=== PATIENT | female | born 1950 | race Caucasian/White ===

== ENCOUNTER → 2018-03-24 10:33 | Outpatient (CLI) | payer OTHER, SELFPAY ==
--- NOTE | 2018-03-24 | DI.RAD.S_ITS ---
PROCEDURE: XR KUB INDICATIONS: KIDNEY STONES TECHNIQUE: One view of the abdomen acquired. COMPARISON: [facility], CT, IVP (ABD & PEL WWO CONTRAST), 12/17/2017, 10:19. [facility], CR, XR ABDOMEN 1 VIEW, 01/23/2018, 9:41. [facility], CR, XR KUB, 01/27/2018, 8:03. [facility], CR, KUB XRAY (1 VIEW ABDOMEN), 01/10/2018, 15:28. FINDINGS: Surgical changes and devices: None. Bowel: Bowel gas pattern is normal. Soft tissues: No suspicious abdominal calcifications except for a 3 mm ovoid radiodensity at the expected position of the central renal collecting system on the left. Overlying the expected position of the uterus, previously documented by CT scanning to contain asymmetric right greater than left dystrophic calcifications, again noted are the same calcifications previously present, not representing distal ureteral or bladder calculi. Visualized solid organ contours appear normal in size. Bones: No suspicious bony lesions. IMPRESSION: Only a 3 mm residual calculus is seen at the central renal collecting system. The left kidney. Dystrophic calcification previously documented within the uterus, previously seen by CT scan, are again noted over the right paramedian and left pelvis. Dictated by: Yevgeniy Winslow M.D. on 03/24/2018 at 11:07 Approved by: Yevgeniy Winslow M.D. on 03/24/2018 at 11:12
== END ==
PROVIDERS: Family Provider Family Medicine; PCP Family Medicine; Visit Provider Specialist
DX: N20.0 Calculus of kidney (principal); N85.8 Other specified noninflammatory disorders of uterus
CPT/HCPCS: 74018

== ENCOUNTER → 2018-04-26 10:13 | Outpatient (CLI) | payer OTHER, SELFPAY ==
--- NOTE | 2018-04-26 | DI.RAD.S_ITS ---
PROCEDURE: XR KUB INDICATIONS: KIDNEY STONES TECHNIQUE: One view of the abdomen acquired. COMPARISON: [facility], CR, XR ABDOMEN 1 VIEW, 02/06/2018, 9:49. [facility], CR, XR KUB, 01/27/2018, 8:03. [facility], CR, XR KUB, 03/24/2018, 10:33. FINDINGS: Surgical changes and devices: None. Bowel: Bowel gas pattern is normal. Soft tissues: The 3 mm calcific density in the left renal pelvic area is no longer visualized.Visualized solid organ contours appear normal in size. Bones: No suspicious bony lesions. IMPRESSION: The 3 mm calcific density in the left kidney seen on the last exam is no longer visualized. Dictated by: Migel Alejandre M.D. on 04/26/2018 at 13:54 Approved by: Migel Alejandre M.D. on 04/26/2018 at 13:57
[2018-04-26 11:30] LABS: Calcium 9.6 mg/dL (8.4-10.2); Uric Acid 4.8 mg/dL (2.5-6.2)
[2018-04-29 14:57] LABS: Parathyroid Hormone Int 21 pg/mL (14-64)
== END ==
PROVIDERS: PCP Family Medicine; Visit Provider Specialist
DX: N20.0 Calculus of kidney (principal)
CPT/HCPCS: 36415; 74018; 82310; 83970; 84550

== ENCOUNTER → 2018-11-24 08:53 | Outpatient (CLI) | payer OTHER, SELFPAY ==
--- NOTE | 2018-11-24 | DI.RAD.S_ITS ---
PROCEDURE: XR KUB INDICATIONS: KIDNEY STONES TECHNIQUE: One view of the abdomen acquired. COMPARISON: [facility], CT, IVP (ABD & PEL WWO CONTRAST), 12/17/2017, 10:19. [facility], CR, XR ABDOMEN 1 VIEW, 02/06/2018, 9:49. [facility], CR, XR KUB, 04/26/2018, 10:02. [facility], CR, XR KUB, 03/24/2018, 10:33. FINDINGS: Surgical changes and devices: None. Bowel: Bowel gas pattern is normal. Soft tissues: No new suspicious abdominal calcifications. Visualized solid organ contours appear normal in size. Previously documented urine calcifications are again seen, better localized by CT scanning noted above. Bones: No suspicious bony lesions. IMPRESSION: No definite urinary tract calcifications are seen. Bilateral right greater than left uterine calcifications are again noted at the pelvis, also documented by CT scanning performed 12/17/17. Dictated by: Yevgeniy Winslow M.D. on 11/24/2018 at 9:44 Approved by: Yevgeniy Winslow M.D. on 11/24/2018 at 9:49
== END ==
PROVIDERS: PCP Family Medicine; Visit Provider Specialist
DX: N20.0 Calculus of kidney (principal)
CPT/HCPCS: 74018

== ENCOUNTER → 2019-02-25 15:12 | Outpatient (ROUT) | payer OTHER, SELFPAY | PROVIDERS: PCP Family Medicine; Visit Provider Family Medicine | DX: R10.2 Pelvic and perineal pain (principal); N39.0 Urinary tract infection, site not specified | CPT/HCPCS: 87086 ==

== ENCOUNTER → 2019-02-27 08:08 | Outpatient (CLI) | payer OTHER, SELFPAY ==
--- NOTE | 2019-02-27 | DI.US.S_ITS ---
PROCEDURE: US PELVIC COMPLETE INDICATIONS: UTERINE FIBROIDS TECHNIQUE: Real-time scanning was performed of the pelvic organs, with image documentation. Additional endovaginal scanning was necessary due to incomplete visualization of the adnexal and endometrial structures by transabdominal scanning. COMPARISON: [facility], CT, IVP (ABD & PEL WWO CONTRAST), 12/17/2017, 10:19. FINDINGS: Transabdominal scanning: Limited scanning through the kidneys shows no hydronephrosis. No pathologic free abdominal or pelvic fluid. Endovaginal scanning: Uterus: Uterus is normal in size at 8.8 x 4.2 x 5.9 cm. The endometrium measures 14 mm in combined thickness. The endometrial stripe is complex appearing and demonstrates increased vascularity. The uterus is diffusely heterogeneous, with numerous fibroids. The largest 3 measure as follows: Right uterus, subserosal/intramural, 2.4 x 2 x 2.1 cm Mid uterus posteriorly, submucosal, 2.6 x 2.4 x 2.4 cm Left mid uterus anteriorly, intramural, 1.9 x 2.2 x 2.4 cm Ovaries: The right ovary measures 3.7 x 2.3 x 2.5 centimeters. Adjacent to the right ovary, there is a 2.7 x 2.2 x 2.2 centimeter structure seen which may be related to adnexal mass or ovarian mass. The left ovary measures 2.4 x 1.6 x 1.4 cm. A small amount of free fluid can be seen within the left adnexal region. IMPRESSION: The endometrial stripe is abnormally thickened for a postmenopausal woman. Differential diagnosis includes endometrial neoplasm and endometrial hyperplasia. Recommend correlation with endometrial histology, as clinically appropriate. Several uterine fibroids are seen. There is a right adnexal mass is seen, which may related to an additional uterine fibroid or a right ovarian lesion. As clinically appropriate, please consider a dedicated gynecological protocol MRI (without and with contrast) for further evaluation (assuming that there is no contraindication). A small amount of free fluid can be seen within the left adnexal region. Dictated by: Markus Knox M.D. on 02/27/2019 at 8:47 Approved by: Markus Knox M.D. on 02/27/2019 at 8:52
== END ==
PROVIDERS: PCP Family Medicine; Visit Provider Family Medicine
DX: D25.1 Intramural leiomyoma of uterus (principal); D25.2 Subserosal leiomyoma of uterus; D25.0 Submucous leiomyoma of uterus; R93.89 Abnormal findings on diagnostic imaging of other specified body structures; R19.00 Intra-abdominal and pelvic swelling, mass and lump, unspecified site
CPT/HCPCS: 76830; 76856

== ENCOUNTER → 2020-07-27 08:52 | Outpatient (CLI) | payer OTHER, SELFPAY ==
--- NOTE | 2020-07-27 | DI.US.S_ITS ---
PROCEDURE: US PELVIC COMPLETE INDICATIONS: Endometrial thickening TECHNIQUE: Real-time scanning was performed of the pelvic organs, with image documentation. Additional endovaginal scanning was necessary due to incomplete visualization of the adnexal and endometrial structures by transabdominal scanning. COMPARISON: [facility], CT, IVP (ABD & PEL WWO CONTRAST), 12/17/2017, 10:19. [facility], US, US PELVIC COMPLETE, 02/27/2019, 8:23. FINDINGS: Transabdominal scanning: Limited scanning through the kidneys shows no hydronephrosis. Thinning of the right renal cortex can be seen. Mild free pelvic fluid can be seen. Endovaginal scanning: Uterus: Uterus is normal in size at 10 x 5.9 x 6.9 cm. The endometrium is abnormally thickened at 14.6 mm. Multiple cystic foci can be seen within the endometrial stripe. Hypoechoic uterine lesions are seen, which are attributed to fibroids. They measure as follows: Right posterior uterus, subserosal/intramural uterus, 2.5 x 2 x 3 x 2.2 cm Mid posterior uterus, submucosal, 2.8 x 2 x 3 x 1.9 cm Left anterior uterus, intramural, 2.7 x 1.7 x 1.5 cm Ovaries: The right ovary measures 3.7 x 2.5 x 3.5 cm and demonstrates a hypoechoic solid-appearing lesion that measures 2.6 x 2 x 2.3 cm. The left ovary measures 2.3 x 1.6 x 1.7 cm and demonstrates an unremarkable sonographic appearance. Normal appearing arterial waveforms are confirmed to each ovary. No adnexal masses can be seen on either side. IMPRESSION: The endometrial stripe is again abnormally thickened in a postmenopausal woman. Differential diagnosis includes endometrial hyperplasia and neoplasm. Please correlate with endometrial histology, if clinically appropriate. There is seen a solid appearing right ovarian mass. Uterine fibroids are again seen. Mild free pelvic fluid can be seen. Dictated by: Markus Knox M.D. on 07/27/2020 at 8:56 Approved by: Markus Knox M.D. on 07/27/2020 at 9:01
== END ==
PROVIDERS: PCP Family Medicine; Referring Provider Family Medicine; Visit Provider Family Medicine
DX: R93.89 Abnormal findings on diagnostic imaging of other specified body structures (principal); N83.9 Noninflammatory disorder of ovary, fallopian tube and broad ligament, unspecified; D25.0 Submucous leiomyoma of uterus; D25.1 Intramural leiomyoma of uterus; D25.2 Subserosal leiomyoma of uterus
CPT/HCPCS: 76830; 76856

== ENCOUNTER → 2020-08-01 12:05 | Outpatient (CLI) | payer OTHER, SELFPAY ==
--- NOTE | 2020-08-01 | DI.RAD.S_ITS ---
PROCEDURE: XR KNEE RT 3V INDICATIONS: RIGHT KNEE PAIN TECHNIQUE: 3 views of the knee were acquired. COMPARISON: [facility], CR, XR KNEE LT 3V, 08/01/2020, 12:13. FINDINGS: Bones: No acute fracture or dislocation. There is mild femorotibial compartment narrowing, small intercondylar and tricompartmental osteophytes. Soft tissues: There is a small joint effusion. No suspicious soft tissue calcifications. IMPRESSION: Small joint effusion and mild knee osteoarthritis. If there is continued pain, followup exam or additional imaging such as MRI or CT could be performed for further assessment. Dictated by: Paloma Rangel M.D. on 08/01/2020 at 15:16 Approved by: Paloma Rangel M.D. on 08/01/2020 at 15:17
--- NOTE | 2020-08-01 | DI.RAD.S_ITS ---
PROCEDURE: XR KNEE LT 3V INDICATIONS: BILATERAL KNEE PAIN TECHNIQUE: 3 views of the knee were acquired. COMPARISON: None. FINDINGS: Bones: No acute fracture or dislocation. There is mild femorotibial compartment narrowing and small intercondylar and tricompartmental osteophytes. Soft tissues: There is a moderate joint effusion. No suspicious soft tissue calcifications. IMPRESSION: Moderate knee joint effusion and mild knee osteoarthritis. If there is continued pain, followup exam or additional imaging such as MRI or CT could be performed for further assessment. Dictated by: Paloma Rangel M.D. on 08/01/2020 at 15:15 Approved by: Paloma Rangel M.D. on 08/01/2020 at 15:16
== END ==
PROVIDERS: PCP Family Medicine; Referring Provider Family Medicine; Visit Provider Family Medicine
DX: M25.561 Pain in right knee (principal); M25.562 Pain in left knee; M17.0 Bilateral primary osteoarthritis of knee; M25.461 Effusion, right knee; M25.462 Effusion, left knee
CPT/HCPCS: 73562

== ENCOUNTER → 2022-01-12 10:51 | Outpatient (CLI) | payer OTHER, SELFPAY ==
--- NOTE | 2022-01-12 | DI.US.S_ITS ---
PROCEDURE: US PELVIC COMPLETE INDICATIONS: Postmenopausal bleeding TECHNIQUE: Real-time scanning was performed of the pelvic organs, with image documentation. Additional endovaginal scanning was necessary due to incomplete visualization of the adnexal and endometrial structures by transabdominal scanning. COMPARISON: [facility], US, US PELVIC COMPLETE, 07/27/2020, 9:13. FINDINGS: Uterus: Uterus is anteverted and measures 9.2 x 5.4 x 6.8. The myometrium is heterogeneous. The endometrium measures 17.3 mm combined thickness and demonstrates hypoechoic areas. Multiple rounded, partially calcified lesions are seen within the uterus, compatible with myomatous change. The largest lesion measures 2.2 x 2.1 x 1.6 cm and is located within the right, posterior uterus, compatible with an intramural fibroid. The 2nd largest lesion measures up to 1.9 cm in the right aspect of the uterus, which is incompletely the visualized due to calcifications. Hypoechoic areas are seen in the cervix, compatible with nabothian cysts. Ovaries: The right ovary is not well seen. A 4.9 x 3.5 x 3.7 cm lesion is seen in the right adnexa, which may reflect an enlarged ovary or endometrioma. The left ovary measures 2.5 x 1.4 x 2 cm Other: No pathologic free abdominal or pelvic fluid. IMPRESSION: 1. Thickening of the endometrium as detailed above, concerning for hyperplasia. A neoplastic process cannot be excluded. 2. Redemonstrated myomatous change of the uterus. 3. Lesion in the right adnexa as detailed above, which is incompletely characterized. Consider MR imaging for further evaluation. We strive to produce accurate, complete, and clear reports of imaging services. To assist us in improving patient care, this report was composed using standard report templates and voice recognition software. Therefore, it may contain abnormal punctuation, insertions and/or omissions. Occasional wrong-word or sound-alike substitutions may occur. Though we review the report and make efforts to correct it, we do recommend that the report be read carefully in proper context to recognize any text inaccuracies. Dictated by: Esau Vasquez M.D. on 01/12/2022 at 11:41 Approved by: Esau Vasquez M.D. on 01/12/2022 at 11:48
== END ==
PROVIDERS: PCP Family Medicine; Referring Provider Family Medicine; Visit Provider Family Medicine
DX: N95.0 Postmenopausal bleeding (principal); R93.89 Abnormal findings on diagnostic imaging of other specified body structures; N85.9 Noninflammatory disorder of uterus, unspecified; N94.9 Unspecified condition associated with female genital organs and menstrual cycle
CPT/HCPCS: 76830; 76856

== ENCOUNTER → 2022-08-17 09:38 | Outpatient (CLI) | payer OTHER, SELFPAY ==
--- NOTE | 2022-08-17 09:40 | DI.MG.S_ITS ---
BILATERAL DIGITAL SCREENING MAMMOGRAM 3D/2D WITH CAD: 08/17/2022 CLINICAL: Routine screening. Family history of breast cancer. Comparison is made to exams dated: 01/09/2018 mammogram, 06/08/2010 mammogram, and 05/27/2008 mammogram - [facility]. There are scattered areas of fibroglandular density in both breasts (category b / 25%-50% glandular tissue). Current study was also evaluated with a Computer Aided Detection (CAD) system. No significant masses, calcifications, or other findings are seen in either breast. There has been no significant interval change. IMPRESSION: NEGATIVE There is no mammographic evidence of malignancy. A 1 year screening mammogram is recommended. Based on the Tyrer Cuzick model (a risk assessment model) the patient's lifetime risk is 3.2% and her 10 year risk is 2.4%. According to the ACR, ACS, and NCCN guidelines, an annual breast MRI exam along with mammogram is recommended if the patient's lifetime risk is 20% or greater. This exam was interpreted at Station ID: [id number]. NOTE: For mammograms, a report in lay terms will be sent to the patient. Approximately 15% of breast malignancies will not be visualized mammographically. In the management of a palpable breast mass, a negative mammogram must not discourage biopsy of a clinically suspicious lesion. Electronically Signed By: Jimbo [email or web address]:08/17/2022 15:56:55 letter sent: Normal Exam ACR BI-RADS Category 1: Negative [id number]
== END ==
PROVIDERS: PCP Family Medicine; Referring Provider Family Medicine; Visit Provider Family Medicine
DX: Z12.31 Encounter for screening mammogram for malignant neoplasm of breast (principal); E21.3 Hyperparathyroidism, unspecified; Z80.3 Family history of malignant neoplasm of breast; Z13.820 Encounter for screening for osteoporosis; Z78.0 Asymptomatic menopausal state
CPT/HCPCS: 77063; 77067; 77080